=== PATIENT | female | born 2005 | race Caucasian/White ===

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

== ENCOUNTER 2023-04-24 16:31 | Inpatient (IN) ==
[2023-04-24 17:37] LABS: ABS Lymphocytes 1.5 10^3/uL (1.0-4.8); ABS Neutrophils 8.8 10^3/uL (1.5-7.6); Eosinophil % 0.1 %; Hematocrit 35.7 % (35-45); Lymphocyte % 13.1 %; Mean Corpuscular Hemoglobin 28.6 pg (27-33); Mean Corpuscular Hgb Conc 33.5 g/dL (31-36); Mean Corpuscular Volume 85.5 fL (80-97); Mean Platelet Volume 7.9 fL (7.5-11.2); Platelet Count 270 10^3/uL (150-450); Red Blood Count 4.18 10^6/uL (3.63-4.92); Red Cell Distribution Width 14.2 % (12-17); White Blood Count 11.2 10^3/uL (3.8-11.8)
[2023-04-24] MEDS ORDERED: Lactated Ringers 1000 ml BAG 1,000 ML IV ONE (17:40)
[2023-04-24] MEDS ORDERED: oxyCODONE/Acetamin 5/325 mg TAB PO ONE (17:40)
[2023-04-24] MEDS ORDERED: Ondansetron 4 mg VIAL 2 MG/ML 2 ml VIAL ONE (17:43)
[2023-04-24] MEDS ORDERED: Ondansetron 4 mg VIAL 2 MG/ML 2 ml VIAL IV ONE (17:45)
[2023-04-24 18:04] LABS: Albumin 3.9 g/dL (3.2-5.2); Albumin/Globulin Ratio 1.3 (1-3); C Reactive Protein 237.07 mg/L (<8.01); Calcium 9.6 mg/dL (8.6-10.3); Creatinine, Serum 0.89 mg/dL (0.51-0.95); Globulin 3.1 g/dL (2-4); Potassium 3.8 mmol/L (3.5-5.0); Total Bilirubin 0.4 mg/dL (0.2-1.0); eGFR CKD-EPI 95.1 (>60)
[2023-04-24] MEDS ORDERED: cefTRIAXone 1 gm/50 mL D5W 1 GM/50 ML BAG IV ONE (18:44)
[2023-04-24] MEDS ORDERED: Morphine 4 MG/ML VIAL (1 ml) IV ONE (18:57)
[2023-04-24] MEDS ORDERED: Iohexol 350 (CONTRAST) 500 ML MDV IV ONE (19:16)
[2023-04-24 19:49] LABS: HCG Pregnancy 1.24 mIU/mL
[2023-04-24] MEDS ORDERED: oxyCODONE/Acetamin 5/325 mg TAB PO PRN (23:51)
[2023-04-24] MEDS ORDERED: Acetaminophen IV 1 GM/100ML 1,000 MG/100 ML BAG IV PRN (23:52)
[2023-04-25] MEDS: Lactated Ringers 1000 ml BAG 1,000 ML IV SCH ×2 (00:46→11:31)
[2023-04-25] MEDS: Ondansetron 4 mg VIAL 2 MG/ML 2 ml VIAL IV PRN ×2 (03:40→21:28)
[2023-04-25 07:43] LABS: ABS Lymphocytes 1.7 10^3/uL (1.0-4.8); ABS Monocytes 0.9 10^3/uL (0.0-0.9); ABS Neutrophils 5.4 10^3/uL (1.5-7.6); Eosinophil % 0.2 %; Hematocrit 35.2 % (35-45); Hemoglobin 11.8 g/dL (11.5-14.3); Lymphocyte % 20.6 %; Mean Corpuscular Hemoglobin 29.3 pg (27-33); Mean Corpuscular Hgb Conc 33.6 g/dL (31-36); Mean Corpuscular Volume 87.2 fL (80-97); Mean Platelet Volume 7.8 fL (7.5-11.2); Nucleated Red Blood Cells % 0.1 /100 WBC (0.0-0.4); Platelet Count 237 10^3/uL (150-450); Red Blood Count 4.04 10^6/uL (3.63-4.92); Red Cell Distribution Width 14.2 % (12-17)
[2023-04-25 08:00] LABS: Calcium 8.5 mg/dL (8.6-10.3); Creatinine, Serum 0.78 mg/dL (0.51-0.95); eGFR CKD-EPI 111.4 (>60)
[2023-04-25] MEDS ORDERED: Acetaminophen IV 1 GM/100ML 1,000 MG/100 ML BAG IV PRN (17:13)
[2023-04-25] MEDS ORDERED: Polyethylene Glycol 3350 17 GM PACKET PO PRN (17:16)
[2023-04-25] MEDS ORDERED: Lactated Ringers 1000 ml BAG 1,000 ML IV ONE (17:37)
[2023-04-25 17:41] LABS: Magnesium 1.6 mg/dL (1.9-2.7)
[2023-04-25] MEDS ORDERED: cefTRIAXone 1 gm/50 mL D5W 1 GM/50 ML BAG IV SCH (20:00)
[2023-04-25] MEDS: cefTRIAXone 1 gm/50 mL D5W 1 GM/50 ML BAG IV SCH (20:47)
[2023-04-26] MEDS: Ondansetron 4 mg VIAL 2 MG/ML 2 ml VIAL IV PRN (03:50)
[2023-04-26] MEDS ORDERED: Magnesium Sulf 4 GM/100 ML IV 4,000 MG/100 ML BAG IVPB ONE (07:27)
[2023-04-26 07:58] LABS: ABS Lymphocytes 1.6 10^3/uL (1.0-4.8); ABS Monocytes 0.9 10^3/uL (0.0-0.9); ABS Neutrophils 4.8 10^3/uL (1.5-7.6); Eosinophil % 0.2 %; Hematocrit 35.2 % (35-45); Hemoglobin 11.8 g/dL (11.5-14.3); Lymphocyte % 22.2 %; Mean Corpuscular Hemoglobin 28.9 pg (27-33); Mean Corpuscular Hgb Conc 33.4 g/dL (31-36); Mean Corpuscular Volume 86.5 fL (80-97); Mean Platelet Volume 8.1 fL (7.5-11.2); Platelet Count 265 10^3/uL (150-450); Red Blood Count 4.07 10^6/uL (3.63-4.92); Red Cell Distribution Width 14.3 % (12-17); White Blood Count 7.3 10^3/uL (3.8-11.8)
[2023-04-26 08:18] LABS: C Reactive Protein 132.46 mg/L (<8.01); Calcium 8.8 mg/dL (8.6-10.3); Creatinine, Serum 0.74 mg/dL (0.51-0.95); Magnesium 1.6 mg/dL (1.9-2.7); Potassium 4.3 mmol/L (3.5-5.0); eGFR CKD-EPI 118.7 (>60)
[2023-04-26] MEDS: cefTRIAXone 1 gm/50 mL D5W 1 GM/50 ML BAG IV SCH (20:32)
[2023-04-27 06:57] LABS: Calcium 8.9 mg/dL (8.6-10.3); Creatinine, Serum 0.8 mg/dL (0.51-0.95); Magnesium 1.7 mg/dL (1.9-2.7); Potassium 4.2 mmol/L (3.5-5.0); eGFR CKD-EPI 108.1 (>60)
[2023-04-27] MEDS ORDERED: Magnesium Sulf 4 GM/100 ML IV 4,000 MG/100 ML BAG IVPB ONE (07:40)
[2023-04-27] MEDS ORDERED: Senna TAB 8.6 mg TAB PO PRN (10:03)
[2023-04-27] MEDS ORDERED: Polyethylene Glycol 3350 17 GM PACKET PO PRN (10:03)
[2023-04-27] MEDS ORDERED: Magnesium Hydroxide LIQ 30 ML UDC PO PRN (10:03)
[2023-04-27 14:55] VITALS: BP 114/68
[2023-04-27] MEDS ORDERED: Lactulose 30 ml UDC PO SCH (16:00)
== END 2023-04-27 18:50 | disposition home or self-care (01) | DRG 463 ==
LOC: ED 16:31 → EDHOLD 16:31 → SUATTDRO 23:11 → MEDTELE 04-25 01:56
PROVIDERS: ADMIT Nurse Practitioner; ATTEND Internal Medicine